=== PATIENT | female | born 1995 | race Two or more races ===

== ENCOUNTER 2020-03-21 12:21 | Outpatient (REF) | payer OTHER, SELFPAY | END 2020-03-21 12:22 | disposition home or self-care (01) | LOC: HO.LAB 12:21 | PROVIDERS: PCP Obstetrics & Gynecology; Visit Provider Internal Medicine | DX: Z20.828 Contact with and (suspected) exposure to other viral communicable diseases (principal) | CPT/HCPCS: C9803; U0003 ==

== ENCOUNTER 2020-03-27 14:06 | Outpatient (REF) | payer OTHER, SELFPAY | END 2020-03-27 14:07 | disposition home or self-care (01) | LOC: HO.LAB 14:06 | PROVIDERS: PCP Obstetrics & Gynecology; Visit Provider Internal Medicine | DX: Z20.828 Contact with and (suspected) exposure to other viral communicable diseases (principal) | CPT/HCPCS: C9803; U0003 ==